=== PATIENT | male | born 1980 | race Caucasian/White ===

== ENCOUNTER 2025-04-20 15:48 | Emergency (ER) | payer OTHER, SELFPAY ==
[2025-04-20 16:42] VITALS: BP 200/134; PULSE 82; RESP 16; TEMP 36.3; O2SAT 95; BMI 54.0
--- NOTE | 2025-04-20 16:46 | XR_ITS ---
Examination: PA lateral chest 2 views Technique 1 upright PA lateral chest 2 views Date and time: April 20, 2025, 1704 hours INDICATIONS: Onset chest pain today. FINDINGS: Normal heart size Minor atelectasis left lower lung zone Right lung clear The osseous structures are intact IMPRESSION: Minor atelectasis left lower lobe
--- NOTE | 2025-04-20 16:46 | EKG_ITS ---
[facility] Test Date: 2025-04-20 Pat Name: SUJATA RUIZ Department: Room: - Gender: Male [employer]: : 1980 Requested By: Tyler Tamayo Order Number: [id number] Reading MD: Tyler Tamayo Measurements Intervals [place] Rate: 77 P: 25 CA: 160 QRS: -8 QRSD: 94 T: 27 QT: 361 QTc: 410 Interpretive Statements SINUS RHYTHM MINIMAL VOLTAGE CRITERIA FOR LVH, CONSIDER NORMAL VARIANT [MEETS CRITERIA IN ONE OF: R(aVL), S(V1), R(V5), R(V5/V6)+S(V1)] Compared to ECG 11/20/2021 13:09:43 No significant changes /store/S0/[id number]/[id number].pdf
--- NOTE | 2025-04-20 16:47 | PD.EDRME ---
Rapid Medical Screening Exam [facility] Arrival date/time: 04/20/25 15:48 45-year-old male with a history of hypertension, valley fever, and gout presents to the emergency room with a chief complaint of an elevated blood pressure reading. Patient states he was seen by his primary care provider and due to his high blood pressure reading was sent to the emergency room. Patient denies any chest pain palpitations or shortness of breath. I have greeted and performed a focused initial assessment of this patient. A comprehensive ED assessment and evaluation of the patient, analysis of all test results, and completion of the medical decision making process will be conducted by additional ED providers. Chief Complaint: General Adult/Misc Complain Time Seen by Provider: 04/20/25 16:05 Vital signs: Vital Signs Temperature 97.3 F 04/20/25 16:42 Pulse Rate 82 04/20/25 16:42 Respiratory Rate 16 04/20/25 16:42 Blood Pressure 200/134 H 04/20/25 16:42 Pulse Oximetry (%) 95 04/20/25 16:42 Oxygen Delivery Method Room Air 04/20/25 16:42 Vital signs reviewed by provider: Yes
[2025-04-20 17:28] VITALS: BP 200/134; PULSE 82
[2025-04-20 17:29] LABS: Basophils # (Auto) 0.0 Thou/mm3 (0.0-0.2); Basophils % (Auto) 0 % (0-2.5); Eosinophils # (Auto) 0.4 Thou/mm3 (0.0-0.5); Eosinophils % (Auto) 4 % (0-10); Hematocrit 49.2 % (41.0-53.0); Hemoglobin 17.1 g/dL (13.5-16.0); Immature Granulocytes Auto 0.02 Thou/mm3 (0.00-0.00); Lymphocytes # (Auto) 1.4 Thou/mm3 (1.0-4.8); Lymphocytes % (Auto) 14 % (10-50); Mean Corpuscular HGB Conc 34.8 g/dl (31.0-37.0); Mean Corpuscular Hemoglobin 31.3 pg (25.0-35.0); Mean Corpuscular Volume 90 fL (80-100); Monocytes # (Auto) 0.6 Thou/mm3 (0.0-0.8); Monocytes % (Auto) 6 % (0-12); Neutrophils # (Auto) 7.3 Thou/mm3 (1.8-7.7); Neutrophils % (Auto) 76 % (37-80); Nucleated Red Blood Cell # 0.00 Thou/mm3 (0.00-0.00); Nucleated Red Blood Cell % 0 /100 WBC (0); Platelet Count 221 Thou/mm3 (140-440); RDW Standard Deviation 46.3 fL (35.1-43.9); Red Blood Count 5.46 Miln/mm3 (4.50-5.90); White Blood Count 9.7 Thou/mm3 (3.8-10.6)
[2025-04-20 17:49] LABS: B-Type Natriuretic Peptide < 20 pg/mL (0-100)
[2025-04-20 17:52] LABS: Alanine Aminotransferase 29 U/L (10-49); Albumin, Serum 4.3 gm/dL (3.5-5.0); Albumin/Globulin Ratio 1.2 (1.2-2.2); Alkaline Phosphatase 67 U/L (46-116); Anion Gap 10 (7-16); Aspartate Amino Transferase 21 U/L (0-34); BUN/Creatinine Ratio 9 Ratio (12-20); Bilirubin,Total 1.0 mg/dL (0.3-1.2); Blood Urea Nitrogen 9 mg/dL (9-23); Calcium 9.5 mg/dL (8.3-10.6); Calcium (Corrected) 9.5 mg/dL (8.5-10.1); Carbon Dioxide 26.5 mMol/L (20.0-31.0); Chloride 106 mMol/L (98-107); Creatinine (Component) 1.0 mg/dL (0.6-1.3); Estimated Creatinine Clearance 133.5 mL/min (>60); Globulin 3.5 gm/dL (2.3-3.5); Glucose 93 mg/dL (74-106); Osmolality,Calculated 281 (275-295); Potassium 4.2 mMol/L (3.4-5.1); Sodium 142 mMol/L (136-145); Total Protein 7.8 gm/dL (5.7-8.2); Troponin I < 0.020 ng/mL (0.0-0.045); eGFR > 60 See Note
[2025-04-20 18:42] LABS: Collection Type, Urine Clean Catch; Squamous Epithelial Cell,Urine 0 /hpf (0-5)
[2025-04-20 18:49] LABS: Bacteria,Urine Rare; Bilirubin,Urine Negative (Negative); Blood,Urine 2+ (Negative); Clarity,Urine Clear (Clear/Hazy); Color,Urine Lt-Yellow (Lt Yel-Yel); Glucose, Urine Negative (Negative); Ketones,Urine Negative (Negative); Leukocyte Esterase,Urine Negative (Negative); Nitrite,Urine Negative (Negative); PH,Urine 6.0 (5.0-7.0); Protein,Urine 1+ (Neg - Trace); RBC,Urine 9 /hpf (0-3); Specific Gravity,Urine 1.016 (1.001-1.035); Urobilinogen,Urine Negative mg/dL (0.0-1.0); WBC,Urine 1 /hpf (0-5)
[2025-04-20 19:37] LABS: Amphetamine/Methamp Scrn,U Negative (Negative); Barbiturate Screen,Urine Negative (Negative); Benzodiazepines Screen,Urine Negative (Negative); Benzoylecgonine Screen, Ur Negative (Negative); Fentanyl Screen,Urine Negative (Negative); Opiate Screen,Urine Negative (Negative); THC Screen,Urine Negative (Negative)
[2025-04-20 20:31] VITALS: BP 156/113; PULSE 72; RESP 17; TEMP 36.8; O2SAT 95
--- NOTE | 2025-04-20 20:39 | PD.EDADULT ---
ED General RME/HPI General Chief complaint: General Adult/Misc Complain Stated complaint: HIGH BP Time Seen by Provider: 04/20/25 16:05 Arrival date/time: 04/20/25 15:48 Limitations: no limitations RME / HPI RME / HPI narrative: 45-year-old male with a history of hypertension was sent here by his primary care provider after he was noted to have elevated blood pressure during a routine clinical visit. Patient denies any nausea, vomiting, or vision changes. He has no chest pain or palpitations. No shortness of breath. No abdominal pain, nausea, vomiting. No lower leg edema. No syncope. He has no other acute complaints or concerns for. Related Data Home Medications ?Medication ?Instructions ?Recorded ?Confirmed methotrexate sodium 2.5 mg tablet 6 tab PO QWEEK PSORIASIS ##0 08/18/14 11/20/21 (methotrexate) cetirizine 10 mg tablet (Aller-Nataly) 10 mg PO QDAY 11/20/21 11/20/21 chlorthalidone 25 mg tablet 25 mg PO QAM 11/20/21 11/20/21 fluconazole 100 mg tablet 100 mg PO QDAY 11/20/21 11/20/21 folic acid 1 mg tablet 1 mg PO QDAY 11/20/21 11/20/21 losartan 100 mg tablet 100 mg PO QDAY 11/20/21 11/20/21 metoprolol tartrate 100 mg tablet 100 mg PO QDAY 11/20/21 11/20/21 montelukast 10 mg tablet 10 mg PO QDAY 11/20/21 11/20/21 naproxen 250 mg tablet 250 mg PO Q6H PRN Pain 11/20/21 11/20/21 prednisone 1 mg tablet 1 mg PO QDAY 11/20/21 11/20/21 Allergies Allergy/AdvReac Type Severity Reaction Status Date / Time lisinopril Allergy Mild Cough Verified 11/20/21 11:28 Review of Systems Review of Systems Systems Reviewed: All systems reviewed, normal except as documented ED Exam General Limitations: Present no limitations General appearance: Present alert and in no apparent distress Head Head exam: Present atraumatic Eye Eye exam: Present normal appearance, PERRL and EOMI ENT ENT exam: Present normal exam, normal oropharynx and mucous membranes moist Neck Neck exam: Present normal inspection, full ROM and trachea midline Chest Chest inspection: Present normal inspection and symmetric chest wall rise Respiratory Respiratory exam: Present normal lung sounds bilaterally Cardiovascular Cardiovascular exam: Present regular rate, normal rhythm and normal heart sounds Abdominal Exam Abdominal exam: Present soft and normal bowel sounds Extremities Exam Extremities exam: Present normal inspection and full ROM Back Exam Back exam: Present normal inspection and full ROM Neurological Exam Neurological exam: Present alert and oriented X3 Psychiatric Psychiatric exam: Present normal affect and normal mood Skin Skin exam: Present warm, dry, intact and normal color Course Quality Measures none Orders Category Date Time Status EKG (ED ONLY) *Do not use* NOW Care 04/20/25 16:46 Completed EKG (ED Only) Stat Exams 04/20/25 16:46 Draft XR chest 2V Stat Exams 04/20/25 16:46 Completed B-Type Natriuretic Peptide Stat Lab 04/20/25 17:20 Completed CBC Stat Lab 04/20/25 17:20 Completed Comprehensive Metabolic Panel Stat Lab 04/20/25 17:20 Completed Drug Screen,Urine Stat Lab 04/20/25 18:20 Completed Troponin I Stat Lab 04/20/25 17:20 Completed Urinalysis Stat Lab 04/20/25 18:20 Completed cloNIDine HCL [Catapres] Med 04/20/25 16:47 Discontinued 0.1 mg PO X1 ONE Vital Signs Vital signs: Vital Signs Temperature 97.3 F 04/20/25 16:42 Pulse Rate 82 04/20/25 16:42 Respiratory Rate 16 04/20/25 16:42 Blood Pressure 200/134 H 04/20/25 16:42 Pulse Oximetry (%) 95 04/20/25 16:42 Oxygen Delivery Method Room Air 04/20/25 16:42 Discharge Plan Plan Patient Disposition: HOME (Self Care) Patient condition on transfer: Stable Prescriptions/Referrals Prescriptions/Med Rec: No Action methotrexate sodium [methotrexate] 2.5 MG tablet 6 tab PO QWEEK Qty: 0 fluconazole 100 mg Tablet 100 mg PO QDAY cetirizine [Aller-Nataly] 10 mg Tablet 10 mg PO QDAY naproxen 250 mg Tablet 250 mg PO Q6H PRN (Reason: Pain) chlorthalidone 25 mg tablet 25 mg PO QAM prednisone 1 mg Tablet 1 mg PO QDAY folic acid 1 mg tablet 1 mg PO QDAY Patient Comments: TAKE 1 TABLET BY MOUTH EVERY DAY montelukast 10 mg Tablet 10 mg PO QDAY losartan 100 mg Tablet 100 mg PO QDAY metoprolol tartrate 100 MG tablet 100 mg PO QDAY Referrals: Lupe Hernandez PA-C [Primary Care Provider] - In 1 week Problem List Clinical Impression: Hypertension Patient/Caregiver Discharge Instructions Education Materials: Blood Pressure Check Steps Additional Instructions: - Your workup today was unremarkable. There is no evidence of any endorgan disease. - Please follow-up with your primary doctor. - Return here as needed for any worsening changes. Print Language: Georgian Stand Alone Forms: [employer] Info., Patient Portal Info Letter MDM Narrative MDM hospital course: 45-year-old male with a history of hypertension was sent here by his primary care provider after he was noted to have elevated blood pressure during a routine clinical visit. Patient denies any nausea, vomiting, or vision changes. He has no chest pain or palpitations. No shortness of breath. No abdominal pain, nausea, vomiting. No lower leg edema. No syncope. He has no other acute complaints or concerns for On exam, patient is nontoxic-appearing and in no visible signs distress. Workup is initiated when he was triaged. Patient retroclavicular 200/134. He received a single dose of clonidine. His pressure now is at 156/113. He continues to have no symptoms. His workup here was essentially unremarkable. I do believe the patient be discharged for outpatient follow-up. He is asked to follow-up with his primary care provider. Return here as needed for any worsening or emergent changes. Medication Administration(s) Medication Administration History Discontinued Medications Clonidine (Clonidine Hcl 0.1 Mg Tablet) 0.1 mg PO X1 ONE Stop: 04/20/25 16:48 Last Admin: 04/20/25 17:28 Dose: 0.1 mg Documented By: AMY
[2025-04-20 20:45] VITALS: RESP 18
== END 2025-04-20 20:45 | disposition home or self-care (01) ==
PROVIDERS: Nurse Practitioner Family; Emergency Provider Emergency Medicine; PCP Physician Assistant
DX: I10 Essential (primary) hypertension (principal); R07.9 Chest pain, unspecified
CPT/HCPCS: 36415; 71046; 80053; 80307; 81001; 83880; 84484; 85025; 93005; 99283; A9270